=== PATIENT | male | born 1990 | race Caucasian/White ===

== ENCOUNTER 2020-05-02 14:16 | Outpatient (REF) | payer MEDICAID, SELFPAY | END 2020-05-02 14:17 | disposition home or self-care (01) | LOC: HO.LAB 14:16 | PROVIDERS: Visit Provider Internal Medicine | DX: Z20.828 Contact with and (suspected) exposure to other viral communicable diseases (principal) | CPT/HCPCS: 36415; C9803; U0003 ==

== ENCOUNTER 2020-06-28 10:44 | Outpatient (REF) | payer MEDICAID, SELFPAY | END 2020-06-28 10:45 | disposition home or self-care (01) | LOC: HO.LAB 10:44 | PROVIDERS: Visit Provider Internal Medicine | DX: Z20.822 Contact with and (suspected) exposure to COVID-19 (principal) | CPT/HCPCS: 36415; C9803; U0003; U0005 ==